=== PATIENT | male | born 1995 | race Caucasian/White ===

== ENCOUNTER 2024-10-30 14:55 | Emergency (ER) | payer OTHER ==
[~2024-10-30] VITALS: Ht 170.2 cm; Wt 91.2 kg
[2024-10-30] MEDS ORDERED: CEPHALEXIN MONOHYDRATE 500 MG CAP PO ONE (17:45)
[2024-10-30] MEDS ORDERED: HYDROCODONE/ACETA 7.5/325 TAB PO ONE (17:45)
[2024-10-30] MEDS ORDERED: CEPHALEXIN500 M1 PO (18:55)
[2024-10-30] MEDS ORDERED: HYDROCODON-ACE1 EA11 PO (18:55)
[2024-10-30] MEDS ORDERED: CEPHALEXIN MONOHYDRATE 500 MG HOME.PACK PO ONE (19:00)
[2024-10-30] MEDS ORDERED: HYDROCODONE BIT/ACETAMINOPHEN 5/325 MG 1 TAB HOME.PACK PO ONE (19:00)
[2024-10-30 19:14] VITALS: BP 139/94
== END 2024-10-30 19:13 | disposition home or self-care (01) ==
LOC: ED 14:55
DX: L08.9 Local infection of the skin and subcutaneous tissue, unspecified (principal); K08.89 Other specified disorders of teeth and supporting structures
CPT/HCPCS: 64450; 99283-25; A9270